=== PATIENT | female | born 1985 | race American Indian/Alaskan Native ===

== ENCOUNTER 2022-10-11 22:59 | Emergency (ER) | payer SELFPAY ==
[2022-10-11] MEDS ORDERED: hydrOXYzine HCl 10 MG Tab PO STA (23:39)
== END 2022-10-11 23:57 ==
LOC: JP.ED 22:59
DX: F41.9 Anxiety disorder, unspecified (principal); F10.920 Alcohol use, unspecified with intoxication, uncomplicated; Z02.89 Encounter for other administrative examinations
CPT/HCPCS: 99283; A9270